=== PATIENT | female | born 1960 | race Caucasian/White ===

== ENCOUNTER 2019-07-02 23:39 | Inpatient (IN) | payer BC ==
[2019-07-03] MEDS ORDERED: Ondansetron ODT 4 MG TAB PO PRN (00:54)
[2019-07-03] MEDS ORDERED: Calcium Carbonate 500 MG ChewTAB PO PRN (00:54)
[2019-07-03] MEDS ORDERED: Acetaminophen 650 MG Suppository PR PRN (00:54)
[2019-07-03] MEDS ORDERED: Ondansetron PF 4 MG/2 ML Vial IVP PRN (00:54)
[2019-07-03] MEDS ORDERED: Labetalol HCl 100 MG/20 ML VIAL SLOW IVP PRN (00:56)
[2019-07-03] MEDS ORDERED: Morphine 2 MG/ML SYRINGE SLOW IVP PRN (00:56)
[2019-07-03] MEDS: Dextrose 5 %-0.45 % NaCl 1,000 ML IV SCH ×3 (01:55→16:54)
[2019-07-03] MEDS: Acetaminophen 325 MG TAB PO PRN ×2 (01:56→16:59)
[2019-07-03] MEDS: cefTRIAXone\\ROCEPHIN 2 GM in Sodium Chloride 0.9% 100 ML IVPB SCH (03:28)
[2019-07-03 03:40] VITALS: BMI 27.8
--- NOTE | 2019-07-03 04:00 | HP ---
PRIMARY CARE PHYSICIAN: Quentin Francis MD CHIEF COMPLAINT: Abdominal discomfort. HISTORY OF PRESENT ILLNESS: The patient is a 58-year-old female who presented to [facility] Emergency Room with epigastric discomfort that started around 4:00 p.m. It was moderate in intensity associated with one episode of emesis. The vomitus contained food which she had eaten. She had a normal bowel movement in the morning. The pain was crampy without any aggravating or relieving factor. No fever, chills, sick contacts, chest pain, palpitations, syncope, or jaundice reported. She denies recent weight loss. A CT scan of the abdomen was consistent with small bowel obstruction with transition point in the distal ileum. After arrival to this facility, patient had watery bowel movement. PAST MEDICAL HISTORY: 1. Hypertension. 2. Hyperlipidemia. 3. Chronic anemia. 4. Meckel diverticulum. 5. History of small bowel obstruction. PAST SURGICAL HISTORY: 1. Hysterectomy. 2. Cholecystectomy. 3. Small intestinal lesion removal. 4. Colonoscopy with polypectomy in [address] Lebron. ALLERGIES: NO KNOWN DRUG ALLERGIES. CURRENT HOME MEDICATION: 1. Crestor 10 mg daily. 2. Losartan 50 mg daily. SOCIAL HISTORY: The patient currently lives at home with her family. She denies current use of alcohol, tobacco, or drug use. FAMILY HISTORY: Positive for hyperlipidemia. REVIEW OF SYSTEMS: All other review of systems reviewed and found negative. PHYSICAL EXAMINATION: VITAL SIGNS: The patient is afebrile with a pulse rate of 107, blood pressure of 202/94 on ER arrival, O2 saturation of 98% on room air. GENERAL: A 58-year-old female, in mild distress due to epigastric discomfort. The patient in distress due to abdominal discomfort. HEENT: Head, atraumatic and normocephalic. Sclerae are anicteric. Moist mucous membranes. No oral lesion. NECK: Supple. No JVD appreciated. No carotid bruit. LUNGS: Clear to auscultation bilaterally. No wheezing, rales, or rhonchi. HEART: S1, S2 present. Regular rate and rhythm, tachycardic. No rubs or gallops. ABDOMEN: Soft. There is generalized tenderness in the epigastric region and the right upper quadrant. No rebound or guarding. No costovertebral angle tenderness. Hyperactive bowel sounds. EXTREMITIES: No edema or calf tenderness. NEUROLOGY: Grossly nonfocal. Moves all 4 extremities. PSYCHIATRY: Alert, awake, oriented x3. SKIN: Warm and dry. LYMPH NODES: No palpable lymph nodes in the neck. LABORATORY FINDINGS: 1. CT scan of the abdomen at [facility] as discussed above. 2. EKG by my review showed sinus rhythm with nonspecific ST-T wave changes. 3. Chemistry showed sodium 141, potassium 5.4, chloride of 99, bicarb of 30, BUN 13, and creatinine 0.83. AST of 60, ALT, alkaline phosphatase, and total bilirubin were normal. 4. Troponin was negative. 5. CBC showed WBC 13.3 with hemoglobin 13.2, hematocrit 42, platelet count of 377. 6. Urinalysis was negative for WBC bacteria. IMPRESSION: 1. Nausea, vomiting with abdominal discomfort secondary to small bowel obstruction, rule out enteritis. 2. One episode of diarrhea after hospital admission. 3. Dehydration. 4. Hyperkalemia. 5. Hypertension. 6. Hyperlipidemia. 7. History of chronic anemia. 8. Acute pain secondary to above. 9. History of Meckel diverticulum. 10. History of small bowel obstruction in the past. PLAN: The patient is currently admitted to the surgical floor. We will place NG tube on low-intermittent suction. General surgery consultation in a.m. IV fluids. Monitor labs on a daily basis. DVT prophylaxis. We will get stool workup. Empiric antibiotics. N.p.o. We will resume home medications once able to tolerate p.o. GI prophylaxis. The patient understands the above plan of care. Job ID: [id number]
[2019-07-03] MEDS ORDERED: Promethazine HCl 25 MG in Sodium Chloride 0.9% 50 ML IVPB SCH (04:30)
[2019-07-03] MEDS: metroNIDAZOLE 500 MG in Premix Bag 1 BAG IVPB SCH ×3 (05:05→20:04)
[2019-07-03 05:59] LABS: ALT (SGPT) 30 U/L (8-55); AST (SGOT) 23 U/L (5-34); Albumin 3.9 g/dL (3.5-5.0); Alkaline Phosphatase 100 U/L (40-110); Anion Gap 15 mmol/L (10-20); BUN (Urea Nitrogen) 16 mg/dL (9.8-20.1); Bilirubin, Total 0.2 mg/dL (0.2-1.2); Calc. Creatinine Clearance 69 mL/min (70-130); Calcium 8.4 mg/dL (7.8-10.44); Carbon Dioxide 23 mmol/L (22-29); Chloride 104 mmol/L (98-107); Estimated GFR-MDRD 62; Globulin 2.7 g/dL (2.4-3.5); Glucose 155 mg/dL (70-105); Lipase 16 U/L (8-78); Magnesium 1.7 mg/dL (1.6-2.6); Phosphorus 3.7 mg/dL (2.3-4.7); Potassium 4.4 mmol/L (3.5-5.1); Protein, Total 6.6 g/dL (6.0-8.3); Sodium 138 mmol/L (136-145)
[2019-07-03 06:39] LABS: Hemoglobin 11.9 g/dL (12.0-16.0); Mean Corpuscular HGB CONC 31.6 g/dL (32.0-36.0); Mean Corpuscular Hemoglobin 25.8 pg (27.0-31.0); Mean Corpuscular Volume 81.4 fL (78.0-98.0); Mean Platelet Volume 7.1 fL (7.4-10.4); Platelet Count 294 thou/uL (130-400); RBC Distribution Width 13.7 % (11.5-14.5); Red Blood Cell (RBC) Count 4.61 mill/uL (4.20-5.40); White Blood Cell (WBC) Count 13.1 thou/uL (4.8-10.8)
[2019-07-03 07:10] LABS: Band 41 % (5-11); Eosinophils 1 % (0-10); Lymphocytes 3 % (21-51); MDiff Complete? YES; Monocytes 6 % (0-10); Neutrophil 49 % (42-75); Reflex for Review?? YES
[2019-07-03] MEDS: Famotidine 20 MG TAB PO SCH ×2 (09:29→20:03)
[2019-07-03] MEDS: Famotidine/PF 20 mg/2ml Vial SLOW IVP SCH ×2 (09:29→20:05)
[2019-07-03] MEDS: Saccharomyces boulardii 250 MG CAP PO SCH (09:29)
--- NOTE | 2019-07-03 12:25 | CON ---
DATE OF CONSULTATION: 07/03/2019 REQUESTING PHYSICIAN: Chetan Adam MD HISTORY OF PRESENT ILLNESS: This is a 58-year-old woman with prior history of multiple abdominal operations. The patient presented to stand-alone emergency department yesterday with insidious onset of abdominal pain, associated with nonbilious emesis, which consisted of undigested food. She describes her pain at that time as crampy without any radiation. CT scan of the abdomen and pelvis was obtained there, which was suspicious for acute small-bowel obstruction with an apparent transition zone in the terminal ileum. The patient denies any fevers or chills. She was admitted yesterday with nasogastric tube placed, which has returned moderate amount of slightly bile-tinged fluid. She has had loose bowel movements since admission, last of which was last night. She is afraid of passing flatus for fear of having fecal incontinence. The patient reports she has had a similar episode in the past, which was managed conservatively until resolved. She currently denies any abdominal pain. PAST MEDICAL HISTORY: Pertinent for previous small-bowel obstructions, chronic anemia, essential hypertension, and hyperlipidemia. PAST SURGICAL HISTORY: Pertinent for hysterectomy, colonoscopy with polypectomy, cholecystectomy, and likely excision of Meckel diverticulum. SOCIAL HISTORY: The patient denies any cigarette smoking, ethanol, or illicit drug abuse. PREHOSPITALIZATION MEDICATIONS: Include: 1. Losartan 50 mg p.o. daily. 2. Crestor 10 mg p.o. daily. ALLERGIES: THE PATIENT DENIES ANY KNOWN DRUG ALLERGIES. FAMILY HISTORY: Noncontributory for this patient's age. REVIEW OF SYSTEMS: Ten-point review of systems is essentially unremarkable except as stated in past medical history and chief complaint. PHYSICAL EXAMINATION: GENERAL: This reveals a 58-year-old normally-developed woman, who is otherwise coherent, interactive, and appears stated age. The patient is alert and oriented x3, appears to be in no acute distress at time of my evaluation. VITAL SIGNS: Include blood pressure of 109/69, pulse is 107, respiratory rate is 20, temperature is 98.3 degrees Fahrenheit, and oxygen saturation is 97% on room air. HEENT: Pupils are equally round and reactive to light and accommodation. NECK: She has no jugular venous distention noted. HEART: Reveals regular rate with sinus tachycardia. No murmurs or gallops auscultated. LUNGS: Clear to auscultation bilaterally. Her breathing is regular and nonlabored. ABDOMEN: Soft, nontender, and nondistended. Nasogastric tube returned a total of 260 mL of slightly bile-tinged effluent since placement yesterday. She clearly has no peritoneal signs on examination. NEUROLOGIC: Reveals no focal deficits present. LABORATORY FINDINGS: Today include a CBC with 13,100 white blood cells, hemoglobin and hematocrit are 11.9 and 37.5 respectively. Platelet count is 294,000. Metabolic profile: Sodium 138, potassium 4.4, chloride is 104, bicarb is 23, BUN 16, creatinine 0.93, glucose 155, phosphorus is 3.7, magnesium 1.7, AST and ALT are 23 and 30 respectively. Serum lipase is also normal at 16. I have personally reviewed the CT scan of the abdomen and pelvis obtained from [facility], which is remarkable for distended loops of small bowel. There is gas in the colon and rectum. IMPRESSION: Resolved abdominal pain, likely secondary to gastroenteritis versus resolved partial small-bowel obstruction. RECOMMENDATIONS: 1. There is no acute surgical indication for this patient at this time. 2. Nasogastric tube is discontinued, and the patient will be started on a clear liquid diet, if she tolerates, may be advanced at the discretion of the Primary Service. 3. The above findings and recommendations have been discussed with the patient in the presence of her nurse. 4. The patient indicates understanding of information given. 5. I answered her questions. Thank you again, Dr. Adam, for allowing me the opportunity to participate in the care of this patient. Job ID: [id number]
--- NOTE | 2019-07-03 12:36 | RAD ---
PORTABLE CHEST 1 VIEW: DATE: 07/03/2019. TIME: 1:21 AM. HISTORY: Chest tube placement. FINDINGS/IMPRESSION: The upper chest has been excluded from the film. There is a nasogastric tube with tip in the distal stomach. POS: RANDALL
[2019-07-03] MEDS ORDERED: Enoxaparin Sodium 40 MG/0.4 ML SYRINGE SC SCH (21:00)
[2019-07-03] MEDS ORDERED: Rosuvastatin 10 MG TAB PO SCH (21:00)
--- NOTE | 2019-07-04 01:45 | PRG ---
DATE OF SERVICE: 07/04/2019 SUBJECTIVE: The patient is currently on the surgical floor. She is the patient we are seeing in consultation for suspected small-bowel obstruction that at this time appears to have resolved. The patient's NG tube has been discontinued. She was started on a regular diet. She is asked only for liquids at the time of my visit, but has denied nausea or vomiting, and she has had multiple bowel movements. PHYSICAL EXAMINATION: VITAL SIGNS: Stable. The patient is afebrile. GENERAL: The patient is resting comfortably in bed. She was asleep at the time of my visit and I did not awaken her for an exam as the nurses reported no concerns and in light of this likely being a resolved small bowel obstruction. ASSESSMENT: Possible small bowel obstruction, improved, resolved. PLAN: Plan will be to continue supportive care. Encourage out of bed, ambulation, and remains nonsurgical candidate at this time. The patient can be discharged if tolerating a diet and at the discretion of the primary team. Job ID: [id number]
[2019-07-04] MEDS: cefTRIAXone\\ROCEPHIN 2 GM in Sodium Chloride 0.9% 100 ML IVPB SCH (03:07)
[2019-07-04] MEDS: Dextrose 5 %-0.45 % NaCl 1,000 ML IV SCH ×2 (03:08→04:45)
[2019-07-04] MEDS: metroNIDAZOLE 500 MG in Premix Bag 1 BAG IVPB SCH (04:15)
[2019-07-04 05:44] LABS: #Eosinphils 0.2 thou/uL (0.0-0.7); #Lymphocytes 2.6 thou/uL (1.20-3.40); #Monocytes 0.6 thou/uL (0.11-0.59); #Neutrophils 4.7 thou/uL (1.40-6.50); %Basophils 0.2 % (0.0-1.0); %Eosinophils 2.9 % (0.0-10.0); %Lymphocytes 32.3 % (21.0-51.0); %Monocytes 7.2 % (0.0-10.0); %Neutrophils 57.4 % (42.0-75.0); Hemoglobin 10.9 g/dL (12.0-16.0); Mean Corpuscular HGB CONC 31.1 g/dL (32.0-36.0); Mean Corpuscular Hemoglobin 25.7 pg (27.0-31.0); Mean Corpuscular Volume 82.6 fL (78.0-98.0); Mean Platelet Volume 6.9 fL (7.4-10.4); Platelet Count 292 thou/uL (130-400); RBC Distribution Width 13.8 % (11.5-14.5); Red Blood Cell (RBC) Count 4.26 mill/uL (4.20-5.40); White Blood Cell (WBC) Count 8.1 thou/uL (4.8-10.8)
--- NOTE | 2019-07-04 05:55 | PDOC.HOSPP ---
- Subjective Encounter Date: 07/03/19 Encounter Time: 13:00 Subjective: pt up in bed feels well. Has had multiple bm. - Objective Vital Signs & Weight: Vital Signs (12 hours) Temp Pulse Resp BP Pulse Ox 07/04/19 04:16 97.3 F L 85 17 119/71 98 07/03/19 20:05 99 07/03/19 19:32 97.6 F 73 18 117/73 99 Weight Weight 147 lb 6.4 oz I&O: 07/02/19 07/03/19 07/04/19 06:59 06:59 06:59 Intake Total 900 2511 Output Total 460 300 Balance 440 2211 Result Diagrams: 07/04/19 05:24 07/03/19 05:26 Hospitalist ROS - Review of Systems Respiratory: denies: cough, dry, shortness of breath, hemoptysis, SOB with excertion, pleuritic pain, sputum, wheezing, other Cardiovascular: denies: chest pain, palpitations, orthopnea, paroxysmal noc. dyspnea, edema, light headedness, other Gastrointestinal: denies: nausea, vomiting, abdominal pain, diarrhea, constipation, melena, hematochezia, other - Medication Medications: Active Medications Generic Name Dose Route Start Last Admin Trade Name Freq PRN Reason Stop Dose Admin Acetaminophen 650 mg 07/03/19 00:54 07/03/19 16:59 Tylenol PO 650 mg Q4H PRN Administration Headache/Fever/Mild Pain (1-3) Enoxaparin Sodium 40 mg 07/03/19 21:00 07/03/19 20:02 Lovenox SC 40 mg 2100 BRITANY Administration Famotidine 20 mg 07/03/19 09:00 07/03/19 20:05 Pepcid SLOW IVP Not Given Q12HR BRITANY Famotidine 20 mg 07/03/19 09:00 07/03/19 20:03 Pepcid PO 20 mg BID BRITANY Administration Dextrose/Sodium Chloride 1,000 mls @ 150 mls/hr 07/03/19 01:00 07/04/19 04:45 D5 1/2 Ns IV Not Given .[id number] BRITANY Metronidazole 500 mg/ Device 100 mls @ 100 mls/hr 07/03/19 05:00 07/04/19 04: 15 IVPB 100 mls 0500,1300,2100 BRITANY Administration Ceftriaxone Sodium 2 gm/ 100 mls @ 200 mls/hr 07/03/19 03:00 07/04/19 03:07 Sodium Chloride IVPB 100 mls 0300 BRITANY Administration Ondansetron HCl 4 mg 07/03/19 00:54 07/03/19 02:12 Zofran IVP 4 mg Q6H PRN Administration Nausea/Vomiting Rosuvastatin Calcium 10 mg 07/03/19 21:00 07/03/19 20:04 Crestor PO Not Given HS BRITANY Saccharomyces Boulardii 250 mg 07/03/19 09:00 07/03/19 09:29 Florastor PO 250 mg DAILY BRITANY Administration - Exam Neck: negative: supple, symmetric, no JVD, no thyromegaly, no lymphadenopathy, no carotid bruit, JVD Heart: negative: RRR, no murmur, no gallops, no rubs, normal peripheral pulses, irregular, diminshed peripheral pulses, murmur present, II/IV, III/IV Respiratory: negative: CTAB, no wheezes, no rales, no ronchi, normal chest expansion, no tachypnea, normal percussion, rales, rhonchi, tachypneic, wheezes Gastrointestinal: negative: soft, non-tender, non-distended, normal bowel sounds , no palpable masses, no hepatomegaly, no splenomegaly, no bruit, no guarding, no rigidity, tender to palpation, distended, diminished bowl sounds, voluntary guarding Hosp A/P (1) SBO (small bowel obstruction) Code(s): K56.69 - OTHER INTESTINAL OBSTRUCTION * DO NOT USE * Status: Acute (2) Nausea & vomiting Code(s): R11.2 - NAUSEA WITH VOMITING, UNSPECIFIED Status: Acute (3) Hyperkalemia Code(s): E87.5 - HYPERKALEMIA Status: Acute - Plan electrolytes replaced. cdiff checked per nursing due to diarrhea, negative. will advance diet if she does well will discharge today or mike.
[2019-07-04 06:25] LABS: ALT (SGPT) 22 U/L (8-55); AST (SGOT) 17 U/L (5-34); Albumin 3.5 g/dL (3.5-5.0); Alkaline Phosphatase 82 U/L (40-110); Anion Gap 11 mmol/L (10-20); BUN (Urea Nitrogen) 6 mg/dL (9.8-20.1); Bilirubin, Total 0.2 mg/dL (0.2-1.2); Calc. Creatinine Clearance 80 mL/min (70-130); Calcium 8.1 mg/dL (7.8-10.44); Carbon Dioxide 26 mmol/L (22-29); Chloride 106 mmol/L (98-107); Estimated GFR-MDRD 73; Globulin 2.5 g/dL (2.4-3.5); Glucose 95 mg/dL (70-105); Magnesium 1.7 mg/dL (1.6-2.6); Phosphorus 2.9 mg/dL (2.3-4.7); Potassium 3.2 mmol/L (3.5-5.1); Sodium 140 mmol/L (136-145)
[2019-07-04] MEDS ORDERED: Potassium Phosphate 30 MMOL in Sodium Chloride 0.9% 500 ML IVPB SCH (07:15)
[2019-07-04] MEDS: Famotidine 20 MG TAB PO SCH (08:55)
[2019-07-04] MEDS: Saccharomyces boulardii 250 MG CAP PO SCH (08:56)
[2019-07-04] MEDS: Famotidine/PF 20 mg/2ml Vial SLOW IVP SCH (08:57)
[2019-07-04] MEDS ORDERED: Losartan 25 MG TAB PO SCH (09:00)
[2019-07-04 09:09] VITALS: BP 152/89; TEMP 98
[2019-07-04] MEDS ORDERED: Potassium Chloride 20 MEQ TAB PO SCH (09:15)
--- NOTE | 2019-07-05 02:32 | DIS ---
DATE OF ADMISSION: 07/03/2019 DATE OF DISCHARGE: 07/04/2019 DISCHARGE DIAGNOSES: 1. Nausea and vomiting. 2. Possible small bowel obstruction. 3. Hyperkalemia, resolved. 4. Hypertension. 5. Hyperlipidemia, chronic. HOSPITAL COURSE: The patient is a very pleasant 58-year-old female, who initially presented to the hospital with abdominal pain, nausea, vomiting. She has had multiple small bowel obstructions. She did have a CT of abdomen and pelvis, which consistent with small bowel obstruction with a transition point. At this time, she was put on an NG tube and was brought into the hospital for further evaluation. She was seen by Surgical Services. No intervention was done. Her NG tube was discontinued. Her diet was advanced, and she clinically improved. She had multiple bowel movements. The bowel movements were checked for C diff, which were negative. The patient was then discharged home. She will follow up with her primary as needed. HOME MEDICATIONS: Losartan and rosuvastatin. PHYSICAL EXAMINATION: VITAL SIGNS: Temperature of 98.0, pulse 84, respiratory rate 16, oxygen saturation 98% on room air, and blood pressure 152/89. GENERAL: She is awake, alert, and oriented x3. Does not appear in distress. CV: S1, S2 present. No murmurs, rubs, or gallops. ABDOMEN: Soft and nontender. Bowel sounds are present x2. Job ID: [id number]
== END 2019-07-04 11:05 | disposition home or self-care (01) | DRG 390 ==
LOC: SJJU 07-03 00:51
PROVIDERS: ADMIT Internal Medicine; ATTEND Internal Medicine
DX: K56.600 Partial intestinal obstruction, unspecified as to cause (principal); E87.5 Hyperkalemia; I10 Essential (primary) hypertension; E78.5 Hyperlipidemia, unspecified; E86.0 Dehydration; R19.7 Diarrhea, unspecified; Z90.49 Acquired absence of other specified parts of digestive tract; Z86.010 Personal history of colon polyps; Z79.899 Other long term (current) drug therapy
CPT/HCPCS: 36415; 71045; 80053; 83630; 83690; 83735; 84100; 85025; 85060; 87045; 87046; 87324; 87427; 87449; J0696; J1650; J2270; J2405; J2550; J3490; J7030; J7042; S0028

== ENCOUNTER 2021-08-31 17:53 | Inpatient (IN) | payer BC ==
[~2021-08-31 17:53] MED LIST: Iopamidol-370 76% 500 ML 1 ML ONE
[2021-08-31 18:24] LABS: #Lymphocytes 0.8 thou/uL (1.20-3.40); #Monocytes 0.4 thou/uL (0.11-0.59); #Neutrophils 10.3 thou/uL (1.40-6.50); %Basophils 0.2 % (0.0-1.0); %Eosinophils 0.1 % (0.0-10.0); %Lymphocytes 7.2 % (21.0-51.0); %Monocytes 3.6 % (0.0-10.0); %Neutrophils 88.9 % (42.0-75.0); Mean Corpuscular HGB CONC 31.8 g/dL (32.0-36.0); Mean Corpuscular Hemoglobin 27.4 pg (27.0-31.0); Mean Corpuscular Volume 85.9 fL (78.0-98.0); Mean Platelet Volume 6.8 fL (7.4-10.4); Platelet Count 286 thou/uL (130-400); RBC Distribution Width 13.4 % (11.5-14.5); Red Blood Cell (RBC) Count 4.75 mill/uL (4.20-5.40); White Blood Cell (WBC) Count 11.6 thou/uL (4.8-10.8)
[2021-08-31] MEDS ORDERED: Metoclopramide HCl 10 MG/2 ML VIAL ONE (18:45)
[2021-08-31 18:51] LABS: ALT (SGPT) 34 U/L (8-55); AST (SGOT) 27 U/L (5-34); Albumin 4.4 g/dL (3.4-4.8); Alkaline Phosphatase 94 U/L (40-110); Anion Gap 16 mmol/L (10-20); BUN (Urea Nitrogen) 14 mg/dL (9.8-20.1); Bilirubin, Total 0.7 mg/dL (0.2-1.2); Calc. Creatinine Clearance 0 mL/min (70-130); Calcium 9.4 mg/dL (7.8-10.44); Carbon Dioxide 23 mmol/L (23-31); Chloride 104 mmol/L (98-107); Estimated GFR 74; Globulin 2.9 g/dL (2.4-3.5); Glucose 105 mg/dL (80-115); Lipase 21 U/L (8-78); Protein, Total 7.3 g/dL (5.8-8.1); Sodium 139 mmol/L (136-145)
[2021-08-31] MEDS ORDERED: Morphine 4 MG/ML VIAL ONE (19:19)
[2021-08-31] MEDS ORDERED: Midazolam HCl 2 mg/2 ml Vial ONE (21:17)
[2021-08-31] MEDS ORDERED: Lidocaine Viscous Sol 2% 15 ml UD Cup ONE (22:03)
[2021-08-31] MEDS ORDERED: Benzocaine 20% Spray 60 ML CAN ONE ×2 (22:03→22:04)
[2021-09-01] MEDS ORDERED: Ondansetron ODT 4 MG TAB SL PRN (00:15)
[2021-09-01] MEDS ORDERED: Ondansetron PF 4 MG/2 ML Vial IVP PRN ×2 (00:15→13:13)
[2021-09-01] MEDS ORDERED: Acetaminophen 325 MG TAB PO PRN (00:15)
[2021-09-01] MEDS ORDERED: Lactated Ringer's 1,000 ML IV SCH ×2 (00:15→01:43)
[2021-09-01 00:49] VITALS: BMI 27.3
[2021-09-01] MEDS ORDERED: Morphine 2 MG/ML VIAL SLOW IVP PRN (01:40)
[2021-09-01] MEDS ORDERED: hydrALAZINE 20 MG/ML VIAL SLOW IVP PRN (01:44)
[2021-09-01 06:37] LABS: Anion Gap 17 mmol/L (10-20); BUN (Urea Nitrogen) 16 mg/dL (9.8-20.1); Calc. Creatinine Clearance 67 mL/min (70-130); Calcium 8.8 mg/dL (7.8-10.44); Carbon Dioxide 22 mmol/L (23-31); Chloride 105 mmol/L (98-107); Estimated GFR 74; Glucose 128 mg/dL (80-115); Sodium 139 mmol/L (136-145)
[2021-09-01 07:04] LABS: #Lymphocytes 0.6 thou/uL (1.20-3.40); #Monocytes 0.6 thou/uL (0.11-0.59); #Neutrophils 8.2 thou/uL (1.40-6.50); %Eosinophils 0.2 % (0.0-10.0); %Lymphocytes 6.3 % (21.0-51.0); %Monocytes 6.5 % (0.0-10.0); %Neutrophils 87.1 % (42.0-75.0); Hemoglobin 12.4 g/dL (12.0-16.0); Mean Corpuscular HGB CONC 32.6 g/dL (32.0-36.0); Mean Corpuscular Hemoglobin 27.9 pg (27.0-31.0); Mean Corpuscular Volume 85.6 fL (78.0-98.0); Mean Platelet Volume 6.9 fL (7.4-10.4); Platelet Count 300 thou/uL (130-400); RBC Distribution Width 13.6 % (11.5-14.5); Red Blood Cell (RBC) Count 4.44 mill/uL (4.20-5.40); White Blood Cell (WBC) Count 9.4 thou/uL (4.8-10.8)
[2021-09-01] MEDS: Enoxaparin Sodium 40 MG/0.4 ML SYRINGE SC SCH (08:35)
[2021-09-01] MEDS ORDERED: MD-Gastroview 120 ML BOT ONE (09:45)
[2021-09-01] MEDS: Ketorolac Tromethamine 30 MG/ML VIAL IVP PRN (13:37)
[2021-09-02 06:07] LABS: #Eosinphils 0.1 thou/uL (0.0-0.7); #Monocytes 0.7 thou/uL (0.11-0.59); #Neutrophils 6.9 thou/uL (1.40-6.50); %Basophils 0.4 % (0.0-1.0); %Eosinophils 0.7 % (0.0-10.0); %Lymphocytes 20.4 % (21.0-51.0); %Monocytes 7.6 % (0.0-10.0); %Neutrophils 70.9 % (42.0-75.0); Hemoglobin 12.5 g/dL (12.0-16.0); Mean Corpuscular HGB CONC 32.6 g/dL (32.0-36.0); Mean Platelet Volume 6.9 fL (7.4-10.4); Platelet Count 249 thou/uL (130-400); RBC Distribution Width 13.8 % (11.5-14.5); Red Blood Cell (RBC) Count 4.48 mill/uL (4.20-5.40); White Blood Cell (WBC) Count 9.7 thou/uL (4.8-10.8)
[2021-09-02 06:28] LABS: Anion Gap 15 mmol/L (10-20); BUN (Urea Nitrogen) 14 mg/dL (9.8-20.1); Calc. Creatinine Clearance 87 mL/min (70-130); Calcium 8.5 mg/dL (7.8-10.44); Carbon Dioxide 25 mmol/L (23-31); Chloride 105 mmol/L (98-107); Estimated GFR 99; Glucose 80 mg/dL (80-115); Magnesium 1.8 mg/dL (1.6-2.6); Potassium 3.6 mmol/L (3.5-5.1); Sodium 141 mmol/L (136-145)
[2021-09-02] MEDS: Enoxaparin Sodium 40 MG/0.4 ML SYRINGE SC SCH (08:49)
[2021-09-02] MEDS: Ketorolac Tromethamine 30 MG/ML VIAL IVP PRN (08:55)
[2021-09-02] MEDS ORDERED: Losartan 25 MG TAB PO SCH (21:15)
[2021-09-03 06:48] LABS: #Eosinphils 0.2 thou/uL (0.0-0.7); #Lymphocytes 2.6 thou/uL (1.20-3.40); #Monocytes 0.7 thou/uL (0.11-0.59); #Neutrophils 5.4 thou/uL (1.40-6.50); %Basophils 0.5 % (0.0-1.0); %Eosinophils 1.8 % (0.0-10.0); %Lymphocytes 29.6 % (21.0-51.0); %Monocytes 7.3 % (0.0-10.0); %Neutrophils 60.8 % (42.0-75.0); Hemoglobin 11.9 g/dL (12.0-16.0); Mean Corpuscular HGB CONC 32.1 g/dL (32.0-36.0); Mean Corpuscular Hemoglobin 27.6 pg (27.0-31.0); Mean Platelet Volume 6.6 fL (7.4-10.4); Platelet Count 264 thou/uL (130-400); RBC Distribution Width 13.4 % (11.5-14.5); Red Blood Cell (RBC) Count 4.31 mill/uL (4.20-5.40); White Blood Cell (WBC) Count 8.9 thou/uL (4.8-10.8)
[2021-09-03 07:22] LABS: Anion Gap 19 mmol/L (10-20); BUN (Urea Nitrogen) 9 mg/dL (9.8-20.1); Calc. Creatinine Clearance 81 mL/min (70-130); Carbon Dioxide 23 mmol/L (23-31); Chloride 103 mmol/L (98-107); Estimated GFR 94; Glucose 68 mg/dL (80-115); Potassium 3.6 mmol/L (3.5-5.1); Sodium 141 mmol/L (136-145)
[2021-09-03] MEDS: Enoxaparin Sodium 40 MG/0.4 ML SYRINGE SC SCH (08:05)
[2021-09-03] MEDS ORDERED: Rosuvastatin 10 MG TAB PO SCH (09:00)
[2021-09-03] MEDS ORDERED: Losartan 25 MG TAB PO SCH (09:00)
[2021-09-03 11:03] VITALS: BP 158/83; TEMP 98.4
== END 2021-09-03 11:37 | disposition home or self-care (01) | DRG 390 ==
LOC: ERS 17:53 → T4-B 21:07 → ERS 09-01
PROVIDERS: ADMIT Internal Medicine; ATTEND Internal Medicine
PROC: 0D9670Z Drainage of Stomach with Drainage Device, Via Natural or Artificial Opening (ICD-10-PCS; principal; 2021-08-31)
DX: K56.609 Unspecified intestinal obstruction, unspecified as to partial versus complete obstruction (principal); E78.00 Pure hypercholesterolemia, unspecified; I10 Essential (primary) hypertension; E78.5 Hyperlipidemia, unspecified; Z20.822 Contact with and (suspected) exposure to COVID-19; Z90.49 Acquired absence of other specified parts of digestive tract; Z90.710 Acquired absence of both cervix and uterus
CPT/HCPCS: 36415; 71045; 74177; 74250; 80048; 80053; 83690; 83735; 85025; 93005; J1650; J1885; J2250; J2270; J2405; J2765; J7120; Q9963; Q9967; U0003; U0005